=== PATIENT | male | born 1985 | race Caucasian/White ===

== ENCOUNTER 2023-06-27 00:29 | Observation (INO) | payer OTHER, SELFPAY ==
[2023-06-27] VITALS (8 sets, daily range): BP systolic 114–141; BP diastolic 62–98; PULSE 80–95; RESP 16–20; TEMP 36.3–37.1; O2SAT 95–100; BMI 33.2
--- NOTE | ~2023-06-27 | XR_ITS ---
Right Hand Technique: PA, oblique, and lateral views were obtained. Clinical History: Dog bite Findings: No acute fracture or dislocation is seen. Osseous alignment is anatomic. Joint spaces are p reserved. There is soft tissue swelling at the first interspace region, consistent with history of do gbite. Impression: No fracture or dislocation. Soft tissue swelling changes in the first interspace region, consistent with history of dog bite. Reviewed, dictated and finalized at location [facility] Impression: No fracture or dislocation. Soft tissue swelling changes in the first interspace region, consistent with hi story of dog bite.
[2023-06-27] MEDS: MORPHINE SULFATE (*CRX) 4 MG/ML INJ IV PUSH ×2 (03:26→07:38)
[2023-06-27] MEDS: AMPICILLIN SULB 3 GM/NS 100 ML 3 GM/100 ML VIAL IVPB ×4 (03:26→21:40)
[2023-06-27] MEDS: TETANUS,DIPHTHERIA,AC PERTUSSIS ADULT (0.5 ML) BOOSTRIX IM (03:26)
[2023-06-27 03:32] LABS: Basophils Percent Auto 0.3 % (0.2-1.2); Eosinophils Absolute Auto 0.1 K/mm3 (0-0.3); Eosinophils Percent Auto 0.4 % (0-4.4); Hematocrit 41.7 % (42.0-52.0); Hemoglobin 14.4 g/dL (14.0-18.0); Immature Granulocyte Absolute 0.03 K/mm3 (0.00-0.031); Immature Granulocyte Percent A 0.2 % (0-0.5); Lymphocytes Absolute Auto 1.61 K/mm3 (0.9-3.2); Lymphocytes Percent Auto 11.7 % (18.3-44.2); Mean Corpuscular HGB Conc 34.5 g/dl (32-36); Mean Corpuscular Hemoglobin 31.9 pg (26-34); Mean Corpuscular Volume 92.3 fl (80-100); Mean Platelet Volume 10.4 fl (7.4-10.4); Monocytes Absolute Auto 0.8 K/mm3 (0.1-0.6); Monocytes Percent Auto 5.6 % (2.6-8.5); Neutrophils Absolute Auto 11.2 K/mm3 (1.3-6.7); Neutrophils Percent Auto 81.8 % (45.5-73.1); Platelet Count Result 277 k/mm3 (150-375); Red Blood Count 4.52 M/mm3 (4.6-6.20); Red Cell Distribution Width 13.2 % (11.5-14.5); White Blood Count 13.7 K/mm3 (4.5-10.0)
[2023-06-27 03:48] LABS: Alanine Aminotransferase 24 U/L (6-50); Albumin Level 2.7 g/dL (3.5-5.1); Alkaline Phosphatase 41 U/L (38-126); Anion Gap 12 mmol/L (8-16); Aspartate Amino Transferase 26 U/L (17-59); Bilirubin,Total 0.4 mg/dL (0.2-1.3); Blood Urea Nitrogen 11 mg/dL (9-20); Calcium 9.3 mg/dL (8.4-10.2); Carbon Dioxide 25 mmol/L (22-30); Chloride 102 mmol/L (98-107); Estimated CRCL calculation 102 ml/min; Estimated Glomerular Filt Rate > 60; Glucose 134 mg/dL (65-110); Potassium 3.9 mmol/L (3.4-5.0); Sodium 139 mmol/L (137-145)
--- NOTE | 2023-06-27 04:02 | ED.GENADULT ---
HPI - General Adult General Chief complaint: Animal Bite Stated complaint: laceration Time Seen by Provider: 06/27/23 02:44 History of Present Illness HPI narrative: Patient is a 37-year-old gentleman presents to the Emergency Cardiology [facility] of dog bite to right hand surgery patient reports that today his dogs were in an altercation and he was trying to break up the fight and he got bit on the right hand. Patient reports that he had swelling is progressively developed in the space between his 1st and 2nd digits patient reports that it progressively more swollen progressively more tender the patient reported unsure of his last tetanus shot records that I recently was treated for a flare of diverticulitis will oral amoxicillin Related Data Home Medications Medication Instructions Recorded Confirmed amoxicillin 875 mg-potassium 1 tablet 06/27/23 clavulanate 125 mg tablet Allergies Allergy/AdvReac Type Severity Reaction Status Date / Time No Known Allergies Allergy Unverified 06/27/23 02:32 Review of Systems Review of Systems: A 10 system review of systems was completed on the patient and is negative except for what is stated in the HPI. Nursing and ancillary documentation was reviewed. [facility] Family History Family History Father Family history of malignant neoplasm Social History Social History Alcohol intake: current Substance use type: marijuana Exam Narrative: GENERAL: Well-appearing, well-nourished, and in no acute distress. HEAD: Normocephalic, atraumatic. EYES: PERRLA and EOMI. ENT: Nares clear, no rhinorrhea or epistaxis. Mucous membranes moist. NECK: Supple. CHEST: Clear to auscultation. No respiratory distress. HEART: Regular rate and rhythm. No murmur heard. Normal peripheral pulses. ABDOMEN: Soft, nontender, nondistended, normal active bowel sounds. EXTREMITIES: Normal range of motion. There is swelling present to the right hand there is a wound present between the 1st and 2nd digits in the web space there is no purulent drainage SKIN: Warm, dry, no rash. NEURO: No focal deficits. Alert and oriented x3. PSYCH: Normal mood and affect. Course Vital Signs Vital signs: Vital Signs Temperature 37.1 C 06/27/23 00:35 Pulse Rate 95 06/27/23 00:35 Respiratory Rate 20 06/27/23 00:35 Blood Pressure 126/83 06/27/23 00:35 Pulse Oximetry 98 06/27/23 00:35 Oxygen Delivery Room Air 06/27/23 00:35 Temperature 37.1 C 06/27/23 00:35 Pulse Rate 94 06/27/23 03:12 Respiratory Rate 18 06/27/23 03:12 Blood Pressure 127/84 06/27/23 03:12 Pulse Oximetry 100 06/27/23 03:12 Oxygen Delivery Room Air 06/27/23 00:35 Medical Decision Making MDM Narrative Medical decision making narrative: Differential diagnosis includes soft tissue infection, flexor tenosynovitis, abscess Plain film x-rays of the right hand showed no evidence fracture or foreign body Laboratory today showed a white count of 13.7 electrolytes are within normal limits The patient will be started on Unasyn case discussed with hospitalist for admission Vital Signs Vital Signs: Vital Signs Temperature 37.1 C 06/27/23 00:35 Pulse Rate 95 06/27/23 00:35 Respiratory Rate 20 06/27/23 00:35 Blood Pressure 126/83 06/27/23 00:35 Pulse Oximetry 98 06/27/23 00:35 Oxygen Delivery Room Air 06/27/23 00:35 Temperature 37.1 C 06/27/23 00:35 Pulse Rate 94 06/27/23 03:12 Respiratory Rate 18 06/27/23 03:12 Blood Pressure 127/84 06/27/23 03:12 Pulse Oximetry 100 06/27/23 03:12 Oxygen Delivery Room Air 06/27/23 00:35 Lab Data 06/27/23 03:24 06/27/23 03:24 Labs: Lab Results 06/27/23 Range/Units 03:24 WBC 13.7 H (4.5-10.0) K/mm3 RBC 4.52 L (4.6-6.20) M/mm3 Hgb 14.4 (14.0-
--- NOTE | 2023-06-27 06:02 | ADMGEN ---
This patient, Phil Reid, was admitted to [facility] Surg Room 330-01. Patient/family oriented to hospital policies and general routines including ID bracelet, bed and alarms, visiting hours, pain management, procedures, bathroom and other care routines, personal items, smoking policy, room service/diet, and visiting hours. Information on how to activate the Rapid Response Team has been discussed. Patient/Family are encouraged to report perceived risks to care and to ask questions if they do not understand what they are told or what they should do.
--- NOTE | 2023-06-27 07:51 | PM.IMHP ---
H&P: HPI History of Present Illness Date/Time: 06/27/23 05:30 Chief Complaint: Dog bite on right-hand Narrative: 37-year-old male with a past medical history of tobacco use and alcohol use who presented to the ER after having dog bite. The patient reports that 1 of his younger dog's startled the older dog who has bad teeth. The dog spun around to attack the other dog and the patient went to intervene and was bit. The patient reports that he wrapped up is handing came to the ER within 1.5 hours of the injury. The patient reports that he rapidly developed swelling of the area. He reports that the hand is aching and pain is manageable when he had is aching but every few minutes he will get a sharp nerve like pain that is severe and will make him jump. Is been unable to fall asleep for more than a few seconds due to the pain. He he has been having a small amount of oozing of blood from the wound. There is no associated erythema. He has intact sensation to the hand. Is Sondra admitted range of motion in both flexion and extension in were severe pain with palpation of the area. Review of Systems Review of Systems: 12 systems were reviewed with pertinent positives and negatives per HPI. Except as documented in the HPI, all other systems were reviewed and are negative. [facility] Past Medical History Medical History (Updated 06/27/23 @ 08:07 by Karoline Arnett DO) Heavy alcohol use Heavy tobacco smoker History of diverticulitis Surgical History Surgical History (Updated 06/27/23 @ 07:54 by Karoline Arnett DO) No history of previous surgery Family History Family History (Updated 06/27/23 @ 07:56 by Karoline Arnett DO) Father Malignant neoplasm of unknown primary site and cell type Mother Rheumatoid arthritis Social History Social History (Updated 06/27/23 @ 07:58 by Karoline Arnett DO) Social History: Patient lives with his fibrittneye. He has smoked 1.5 packs of cigarettes per day since the age 20. He drinks 5 or more alcoholic beverages (2 fire balls in at least 2-3 beers) 5 days a week. He reports that he only drinks on days that he works because the he hates his job. He uses marijuana nightly. 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 He has a 6-year-old daughter. He is for medium to large-sized dogs at home. Code status: Full code Smoking packs per day: 1.5 Smoking cigarettes per day: 30.0 Years smoked: 17 Smoking pack-years: 25.50 Smoking status: Current every day smoker Tobacco type: cigarettes Alcohol intake: current Drinks per week: 35 Substance use: current Substance use type: marijuana Lack of Transportation: No Lack of Food: Never True Current Housing: I Have Housing Concerned About Future Housing: No Difficulty Paying Gas/Electric Bills: No Difficulty Paying for Meds: No Currently Unemployed: No Education: High School Diploma/GED Difficulty w/ Childcare or Family Care: No Spiritual care concerns: No Meds Home Medications and Allergies Allergies Allergy/AdvReac Type Severity Reaction Status Date / Time No Known Allergies Allergy Verified 06/27/23 07:24 Vital Signs Vital Signs - 24 hr 06/27/23 00:35 06/27/23 03:12 06/27/23 05:54 Temperature 98.7 F Pulse Rate 95 94 89 Respiratory Rate 20 18 18 Blood Pressure 126/83 127/84 123/77 Pulse Oximetry 98 100 100 Oxygen Delivery Room Air 06/27/23 06:00 Temperature 97.8 F Pulse Rate 89 Respiratory Rate 18 Blood Pressure 134/84 Pulse Oximetry 100 Oxygen Delivery Exam Narrative: Weight 99 kg BMI 33.2 Const: Other: No acute distress, well-developed well-nourished, well-groomed HENMT: Other: Mucous membranes are moist, no oral pharyngeal erythema, Eyes: Other: Pupils are equal and reactive, no scleral icterus, no conjunctival pallor Neck: Other: No JVD, no lymphadenopathy Resp: Other: Clear to
--- NOTE | 2023-06-27 11:40 | PM.IMPN ---
Progress Note: A&P Assessment and Plan (1) Dog bite: Qualifiers: Encounter type: initial encounter Qualified Code(s): W54.0XXA - Bitten by dog, initial encounter Code(s): W54.0XXA - Bitten by dog, initial encounter Status: Acute Assessment and Plan: Initiated on unasyn 06/26 Consult to hand (2) Heavy alcohol use: Code(s): F10.90 - Alcohol use, unspecified, uncomplicated Status: Acute (3) Heavy tobacco smoker: Code(s): F17.200 - Nicotine dependence, unspecified, uncomplicated Status: Acute Assessment and Plan: Nicotine replacement products available as needed Plan DVT prophylaxis with SCDs GI prophylaxis not indicated Code status full code Subjective Date/time seen: 06/27/23 11:40 Interval history: 37-year-old male with history of nicotine and alcohol abuse presenting with dog bite. No overnight events noted. No chest pain or shortness of breath. No nausea, vomiting or diarrhea. No fevers or chills. Patient states his hand feels much better than yesterday. Review of Systems Review of Systems: 12 point review of systems was assessed and was negative except as noted in the HPI Exam Narrative: General: No acute distress, alert and oriented per baseline HEENT: Atraumatic, normocephalic, mucous membranes moist CV: Regular rate and rhythm, S1, S2 Lungs: Clear to auscultation bilaterally, no rales or crackles noted, no wheezes, good air entry Abdomen: Soft, nontender, nondistended Extremities: Normal to inspection, right hand with edema, abrasion noted over dorsal surface of thumb, no drainage, no warmth, some TTP, sensation intact Skin: No rashes noted, no lesions or wounds seen Psych: Euthymic, normal affect Objective Data Vital Signs Vital Signs: Vital Signs - 24 hr 06/27/23 00:35 06/27/23 03:12 06/27/23 05:54 Temperature 98.7 F Pulse Rate 95 94 89 Respiratory Rate 20 18 18 Blood Pressure 126/83 127/84 123/77 Pulse Oximetry 98 100 100 Oxygen Delivery Room Air 06/27/23 06:00 Temperature 97.8 F Pulse Rate 89 Respiratory Rate 18 Blood Pressure 134/84 Pulse Oximetry 100 Oxygen Delivery Intake/Output Intake/Output: Intake & Output 11/26/23 06/25/23 06/26/23 06/27/23 23:59 23:59 23:59 23:59 Intake Total 200 Balance 200 Meds/Results Medications: Active Medications Generic Name Dose Route Start Last Admin Trade Name Freq PRN Reason Stop Dose Admin Hydrocodone Bitart/Acetaminophen 1 tab 06/27/23 06:30 Hydrocodone/Acetaminophen (*Crx) 5-325 Mg Tablet PO Q4H PRN pain 4-6 Ampicillin Sodium/Sulbactam Sodium 3 gm in 100 mls @ 200 mls/hr 06/27/23 09:00 06/27/23 09:56 Unasyn 3 Gm/Ns 100 Ml IVPB Infused Q6H MICHAELA Infusion Ibuprofen 600 mg 06/27/23 08:01 Ibuprofen 600 Mg Tablet PO Q6H PRN Pain Rated 1-3 Morphine Sulfate 4 mg 06/27/23 08:00 Morphine Sulfate (*Crx) 4 Mg/Ml Inj IV PUSH Q4H PRN Pain Rated 7-10 Nicotine 1 patch 06/27/23 08:07 Nicotine (*Pbkc) 21 Mg Patch TRANSDERM DAILY PRN Nicotine withdrawal Ondansetron HCl 4 mg 06/27/23 05:15 Ondansetron Inj 4 Mg/2 Ml Vial IV PUSH Q4H PRN Nausea Radiology Results: ITS Impressions Hand X-Ray 06/27/23 05:53 Impression: No fracture or dislocation. Soft tissue swelling changes in the first interspace region, consistent with history of dog bite. Labs Labs: Laboratory Results - last 24 hr 06/27/23 03:24 WBC 13.7 H RBC 4.52 L Hgb 14.4 Hct 41.7 L MCV 92.3 MCH 31.9 MCHC 34.5 RDW 13.2 Plt Count 277 MPV 10.4 Immature Gran % (Auto) 0.2 Neut % (Auto) 81.8 H Lymph % (Auto) 11.7 L Jasper % (Auto) 5.6 Eos % (Auto) 0.4 Baso % (Auto) 0.3 Lymph # (Auto) 1.61 Jasper # (Auto) 0.8 H Eos # (Auto) 0.1 Baso # (Auto) 0.0 Abs Immat Gran (auto) 0.03 Absolute Neuts (auto) 11.2 H Absolute Nucleated RBC
[2023-06-27] MEDS: HYDROcodone/acetaminophen (*CRX) 5-325 MG TABLET 1 TAB PO ×2 (13:42→18:09)
--- NOTE | 2023-06-27 15:01 | PCCCNOTE ---
On 06/27/23, the student, [Sarah Pablo], provided care and completed [facility] documentation on this patient. I have reviewed the student's documentation and agree with the findings.
--- NOTE | 2023-06-27 20:13 | PC.NURSE ---
Pt is A&O4 male who is compliant with treatment. Pt participates and contributes in plan of care. Pt has dog bite, due to breaking up dog fight, to right hand. Pt reports pain and throbbing to hand. Pt hand swollen, red, and shiny, area outlined. Raven was called due to pt ring and pinky fingers being pale and cold. Pt hand was cleaned with normal saline. Pt has been monitored for any changes in status. Report given to anesthesiology physician assistant nurse.
[2023-06-28] MEDS: AMPICILLIN SULB 3 GM/NS 100 ML 3 GM/100 ML VIAL IVPB ×2 (02:30→08:47)
[2023-06-28] MEDS: IBUPROFEN 600 MG TABLET PO (03:15)
[2023-06-28 06:00] VITALS: BP 124/72; PULSE 70; RESP 14; TEMP 36.3; O2SAT 98
--- NOTE | 2023-06-28 09:35 | PM.DS ---
DS: Admitting Diagnosis Discharge Date 06/28/23 Admitting Diagnosis dog bite DS: Discharge Diagnosis Discharge Diagnosis (1) Dog bite: Qualifiers: Encounter type: initial encounter Qualified Code(s): W54.0XXA - Bitten by dog, initial encounter Code(s): W54.0XXA - Bitten by dog, initial encounter Status: Acute Assessment and Plan: Initiated on unasyn 06/26 Consult to hand (2) Heavy alcohol use: Code(s): F10.90 - Alcohol use, unspecified, uncomplicated Status: Acute (3) Heavy tobacco smoker: Code(s): F17.200 - Nicotine dependence, unspecified, uncomplicated Status: Acute Assessment and Plan: Nicotine replacement products available as needed Plan DVT prophylaxis with SCDs GI prophylaxis not indicated Code status full code DS: Summary Hospital Course Hospital Course: 37-year-old male with history of nicotine and alcohol abuse presenting with dog bite. Initiated on unasyn 06/26 Consult to hand All symptoms improved. Please see above and med rec for details. Patient is to follow up in the office with an surgery and take his antibiotics as prescribed. Time Spent with Patient Time attestation: Total time spent providing and/or coordinating discharge services: Exam Narrative: General: No acute distress, alert and oriented per baseline HEENT: Atraumatic, normocephalic, mucous membranes moist CV: Regular rate and rhythm, S1, S2 Lungs: Clear to auscultation bilaterally, no rales or crackles noted, no wheezes, good air entry Abdomen: Soft, nontender, nondistended Extremities: Normal to inspection, right hand with edema, abrasion noted over dorsal surface of thumb, no drainage, no warmth, some TTP, sensation intact Skin: No rashes noted, no lesions or wounds seen Psych: Euthymic, normal affect Discharge Plan Discharge Attending physician on discharge: Jennifer Mcdonald Consulting providers: Anabel Boo Discharging Clinician: Jennifer Mcdonald Patient Disposition: Home, Self-Care Activity: as tolerated Diet: as tolerated Patient Instructions: Antibiotic Form, How to Stop Smoking (DC), Animal Bite (DC) Stand Alone Forms: General Discharge Information Follow-up/Referrals: Anabel Boo MD [Physician] - UNKNOWN,DOCTOR [Primary Care Provider] - Discharge Medications: New amoxicillin-pot clavulanate 875-125 mg tablet 1 tablet PO Q12H 7 Days Qty: 14 0RF Date of admission: 06/27/23 05:16 Primary Care Provider: UNKNOWN,DOCTOR Admitting Provider: Karoline Arnett Attending physician on admission: Karoline Arnett Condition: Stable
--- NOTE | 2023-06-28 13:19 | WPDCN ---
Assessment and Plan Assessment and plan (1) Dog bite: Qualifiers: Encounter type: initial encounter Qualified Code(s): W54.0XXA - Bitten by dog, initial encounter Code(s): W54.0XXA - Bitten by dog, initial encounter Status: Acute Assessment and Plan: 37yo male doing well s/p right hand dog bite with resolving cellulitis and inflammation xray images reviwed and agree with report discussed impression and Dx and hopeful expectation for conitnued improvement with conservative mgmt no surgical intervention indicated at this time Plan: 1) transition to po abx 2) d/x home if ok by primary 3) warm compresses or baths 4) f/u if not improving or worsening HPI Data of Consult Date/Time: 06/28/23 13:19 Requesting Physician: Karoline Arnett DO Primary Care Provider: UNKNOWN,DOCTOR Consult Narrative Narrative: Phil Reid is a 37 year old male admitted for IV for right hand dog bite cellulitis bit by his dog ~24 hours ago and presented to ED shortly thereafter and admitted for IV abx. pt notes significant interval improvement without concerns only noting persistent edema and healing puncture wounds PMFSH Past Medical History Medical History (Updated 06/27/23 @ 08:07 by Karoline Arnett DO) Heavy alcohol use Heavy tobacco smoker History of diverticulitis Surgical History Surgical History (Updated 06/27/23 @ 07:54 by Karoline Arnett DO) No history of previous surgery Family History Family History (Updated 06/27/23 @ 07:56 by Karoline Arnett DO) Father Malignant neoplasm of unknown primary site and cell type Mother Rheumatoid arthritis Social History Social History (Updated 06/27/23 @ 07:58 by Karoline Arnett DO) Social History: Patient lives with his fiancee. He has smoked 1.5 packs of cigarettes per day since the age 20. He drinks 5 or more alcoholic beverages (2 fire balls in at least 2-3 beers) 5 days a week. He reports that he only drinks on days that he works because the he hates his job. He uses marijuana nightly. 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 Code status: Full code Smoking packs per day: 1.5 Smoking cigarettes per day: 30.0 Years smoked: 17 Smoking pack-years: 25.50 Smoking status: Current every day smoker Tobacco type: cigarettes Alcohol intake: current Drinks per week: 35 Substance use: current Substance use type: marijuana Lack of Transportation: No Lack of Food: Never True Current Housing: I Have Housing Concerned About Future Housing: No Difficulty Paying Gas/Electric Bills: No Difficulty Paying for Meds: No Currently Unemployed: No Education: High School Diploma/GED Difficulty w/ Childcare or Family Care: No Spiritual care concerns: No Meds Home Medications and Allergies Allergies Allergy/AdvReac Type Severity Reaction Status Date / Time No Known Allergies Allergy Verified 06/27/23 07:24 Vital Signs Vital Signs - 24 hr 06/27/23 14:00 06/27/23 14:54 06/27/23 22:00 Temperature 36.8 C 36.3 C L Pulse Rate 88 80 Respiratory Rate 18 16 Blood Pressure 141/98 H 114/62 Pulse Oximetry 97 95 98 Oxygen Delivery Room Air 06/27/23 20:00 06/28/23 06:00 06/28/23 08:45 Temperature 36.3 C L Pulse Rate 70 Respiratory Rate 14 Blood Pressure 124/72 Pulse Oximetry 98 98 Oxygen Delivery Room Air Room Air Exam Narrative: Gen: right hand edema and regressing erythema. dry eschar on dorsal and volar puncture wounds. ROM: full ROM. no pain on passive stretch Vascular: Warm and well perfused Sensation: Intact to light touch Results Labs 06/27/23 03:24 06/27/23 03:24 AMG Consult Billing Inpatient Consult Inpatient Consults: [id number] Initial Admit High
[2023-06-28] MEDS: NEOMYCIN/POLYMYXIN/BACITRACIN OINTMENT PACKET 1 PACKET (14:05)
--- NOTE | 2023-06-28 15:27 | PCCCNOTE ---
On 06/28/23, the student, [Sarah Pablo], provided care and completed [facility] documentation on this patient. I have reviewed the student's documentation and agree with the findings.
== END 2023-06-28 14:42 | disposition home or self-care (01) ==
LOC: ANHED 05:15 → ANH3MEDSUR 06:31
PROVIDERS: Admitting Provider Internal Medicine; Emergency Provider Emergency Medicine; Visit Provider Student in an Organized Health Care Education/Training Program
DX: S61.451A Open bite of right hand, initial encounter (principal); L03.113 Cellulitis of right upper limb; W54.0XXA Bitten by dog, initial encounter; Z23 Encounter for immunization; F10.90 Alcohol use, unspecified, uncomplicated; F17.210 Nicotine dependence, cigarettes, uncomplicated; F12.90 Cannabis use, unspecified, uncomplicated; Z79.2 Long term (current) use of antibiotics
CPT/HCPCS: 36415; 73130; 80053; 85025; 90471; 90715; 96365; 96366; 96375; 96376; 99285; A9270; G0378; J0295; J2270